=== PATIENT | male | born 1985 | race Caucasian/White ===

== ENCOUNTER 2018-04-22 19:00 | Emergency (ER) | payer OTHER ==
[2018-04-22 19:10] VITALS: BP 145/77
--- NOTE | 2018-04-22 19:15 | ED Physician Documentation ---
PD HPI OPHTHO - Stated complaint Stated Complaint: RT EYE VISION LOSS - Chief complaint Chief Complaint: Heent - History obtained from History obtained from: Patient - History of Present Illness Timing - onset: How many minutes ago (45), Today Timing - duration: Minutes (lasted just 1-2 minutes then resolved. He was on knees working, not grunting nor straining, and had onset of v-shaped darkened vision in just right eye from upper aspect. Lasted about 1-2 minutes then improved. No headache. No scotomata nor flashes.) Timing - details: Abrupt onset, Now resolved Location: Right Quality / character: No: Itching, Burning, Aching Associated symptoms: Loss of vision (in v-shape from top of visual field.). No: Redness, Swelling Contributing factors: No: Recent URI, FB, Wears contacts Similar symptoms before: Has not had sx before Recently seen: Not recently seen Review of Systems Constitutional: denies: Fever, Chills Nose: denies: Rhinorrhea / runny nose, Congestion Throat: denies: Sore throat Respiratory: denies: Cough Neurologic: denies: Focal weakness, Numbness, Near syncope, Confused, Altered mental status, Headache, Head injury PD PAST MEDICAL HISTORY - Past Medical History Cardiovascular: None Respiratory: None Neuro: Migraines Endocrine/Autoimmune: None GI: None HEENT: None - Past Surgical History Past Surgical History: No - Present Medications Home Medications: Ambulatory Orders Medication Instructions Recorded Confirmed No Known Home Medications 07/19/16 07/19/16 - Allergies Allergies/Adverse Reactions: Allergies Allergy/AdvReac Type Severity Reaction Status Date / Time No Known Drug Allergies Allergy Verified 04/22/18 19:10 - Social History Does the pt smoke?: No Smoking Status: Never smoker Does the pt drink ETOH?: No Does the pt have substance abuse?: No - Immunizations Immunizations are current?: Yes PD ED PE NORMAL - Vitals Vital signs reviewed: Yes - General General: Alert and oriented X 3, No acute distress, Well developed/nourished PD ED PE EXPANDED - Eyes Eyes: PERRL, EOMI, Both eyes, Normal eyelids, Anterior chambers clear, Other (bedside U/S did not show any obvious retinal flaps. ). No: Injected conj/sclera, Exudate, Corneal FB, Papilledema, Retinal hemorrhage Results - Vitals Vitals: Vital Signs - 24 hr 09/23/18 19:05 Temperature 36.7 C Heart Rate 63 Respiratory 16 Rate Blood Pressure 145/77 H O2 Saturation 95 Oxygen O2 Source Room air PD MEDICAL DECISION MAKING - ED course Complexity details: considered differential (history of migraines but he did not have headache nor scotomata with the vision change, so not clearly migraine. Consider retinal process. Eye appears normal now. I would like him to have more expert exam tomorrow. Rest in meanwhile. ), d/w patient - Sepsis Event Vital Signs: Vital Signs - 24 hr 04/22/18 19:05 Temperature 36.7 C Heart Rate 63 Respiratory 16 Rate Blood Pressure 145/77 H O2 Saturation 95 Oxygen O2 Source Room air Departure - Departure Disposition: 01 Home, Self Care Clinical Impression: Vision loss of left eye Condition: Stable Record reviewed to determine appropriate education?: Yes Follow-Up: [facility] [Provider Group] Carlos A Wyman MD [Provider Admit Priv/Credential] - Comments: Follow-up with an document specialist tomorrow for recheck to verify how the retina is looking. Rest off work tonight. Forms: Activity restrictions Discharge Date/Time: 04/22/18 19:57
== END 2018-04-22 19:57 | disposition home or self-care (01) ==
LOC: ED 19:00
DX: H54.61 Unqualified visual loss, right eye, normal vision left eye (principal)
CPT/HCPCS: 99282; 99283

== ENCOUNTER 2018-06-05 10:53 | Emergency (ER) | payer OTHER ==
[2018-06-05] MEDS ORDERED: HYDROcod/ACETAM 5/325 MG TABLET PO STA (12:20)
[2018-06-05] MEDS ORDERED: CLINDAMYCIN 150 MG CAPSULE PO STA (12:20)
[2018-06-05] MEDS ORDERED: DEXAMETHASONE 10 MG/ML VIAL PO STA (12:20)
--- NOTE | 2018-06-05 12:24 | ED Physician Documentation ---
History of Present Illness - Stated complaint Stated Complaint: THROAT/NECK PX - Chief complaint Chief Complaint: General - History obtained from History obtained from: Patient - History of Present Illness Timing: How many days ago (3) Pain level max: 9 Pain level now: 9 - Additonal information Additional information: Patient is a healthy 33-year-old male who presents to the emergency department with 3 days of a sore throat, neck pain, headache. Unsure if he has had fevers or not. Has pain with swallowing. Worse with swallowing, better with Motrin. No vomiting. No diarrhea. No rashes. Immunizations are up-to-date. Review of Systems Constitutional: denies: Fever, Chills Ears: denies: Ear pain Nose: denies: Rhinorrhea / runny nose, Congestion Cardiac: denies: Chest pain / pressure Respiratory: denies: Dyspnea, Cough GI: denies: Abdominal Pain, Vomiting, Diarrhea Skin: denies: Rash Musculoskeletal: denies: Neck pain, Back pain PD PAST MEDICAL HISTORY - Past Medical History Cardiovascular: None Respiratory: None Neuro: Migraines Endocrine/Autoimmune: None GI: None HEENT: None - Past Surgical History Past Surgical History: No - Present Medications Home Medications: Ambulatory Orders Medication Instructions Recorded Confirmed Clindamycin HCl [Clindamycin 300MG 300 mg PO Q6H #40 capsule 06/05/18 CAP] Cyclobenzaprine [Flexeril] 06/05/18 Hydrocodone/Acetaminophen 1 - 2 each PO Q6H PRN #10 tablet 06/05/18 [Hydrocodon-Acetaminophen 5-325] Sumatriptan [Imitrex] 06/05/18 predniSONE [Prednisone] 40 mg PO DAILY #10 tablet 06/05/18 - Allergies Allergies/Adverse Reactions: Allergies Allergy/AdvReac Type Severity Reaction Status Date / Time No Known Drug Allergies Allergy Verified 06/05/18 11:19 - Social History Does the pt smoke?: No Smoking Status: Never smoker Does the pt drink ETOH?: Yes ETOH Use: Liquor Does the pt have substance abuse?: No - Immunizations Immunizations are current?: Yes - POLST Patient has POLST: No PD ED PE NORMAL - Vitals Vital signs reviewed: Yes - General General: Alert and oriented X 3, No acute distress, Well developed/nourished - HEENT HEENT: PERRL, Moist mucous membranes, Other (Moderate posterior pharyngeal erythema without tonsillar exudates. Uvula is deviated just to the left of midline. There is swelling without fluctuance.) - Neck Neck: Supple, no meningeal sign, Other (Shotty anterior lymphadenopathy, right greater than left) - Cardiac Cardiac: RRR, Strong equal pulses - Respiratory Respiratory: No respiratory distress, Clear bilaterally - Abdomen Abdomen: Soft, Non tender, Non distended - Derm Derm: Warm and dry, No rash - Neuro Neuro: Alert and oriented X 3 - Psych Psych: Normal mood, Normal affect Results - Vitals Vitals: Vital Signs - 24 hr 06/05/18 11:00 Temperature 36.2 C L Heart Rate 71 Respiratory 12 Rate Blood Pressure 145/77 H O2 Saturation 100 Oxygen O2 Source Room air - Labs Labs: Laboratory Tests 06/05/18 11:14 Group A Strep Rapid Negative PD MEDICAL DECISION MAKING - ED course Complexity details: reviewed results, considered differential (No meningitis, no encephalitis, no sepsis), d/w patient ED course: 33-year-old male with what appears to be peritonsillar cellulitis versus early abscess. Given dexamethasone and clindamycin. Will based on clindamycin for home and close follow-up with his PCM. Patient is well-appearing, nontoxic. Afebrile. Tolerating p.o. without difficulty. Patient counseled regarding signs and symptoms for which I believe and urgent re-evaluation would be necessary. Patient with good understanding of and agreement to plan and is comfortable going home at this time This document was made in part using voice recognition software. While efforts are made to proofread this document, sound alike and grammatical errors may occur. Departure - Departure Disposition: 01 Home, Self Care Clinical Impression: Peritonsillar cellulitis Condition: Good Instructions: ED Peritonsillar Infec Abx No I andD Follow-Up: [facility] [Provider Group] - Within 3 Days Prescriptions: Clindamycin HCl [Clindamycin 300MG CAP] 300 mg PO Q6H #40 capsule Hydrocodone/Acetaminophen [Hydrocodon-Acetaminophen 5-325] 1 - 2 each PO Q6H PRN #10 tablet PRN Reason: pain predniSONE [Prednisone] 40 mg PO DAILY #10 tablet Comments: Take all antibiotics until gone. Return if you worsen. This may turn into an abscess and need to be drained. Follow-up with your doctor on or Monday for repeat evaluation. Do not drink alcohol or drive while on narcotic pain medicine. Note that many narcotic pain relievers also contain tylenol/acetaminophen. Please ensure that your total dose of acetaminophen from all sources does not exceed 3 grams (3000mg) per day. You may constipated on this medication, take a stool softener such as "Colace" twice a day while you are on it. Also recommend a pyfu-jug-wsmgaot laxative such as senna or MiraLAX any day that you do not have a bowel movement. If you received narcotic pain medication in the emergency department, do not drive or operate machinery for the next 24 hours.
[2018-06-05] MEDS ORDERED: CHERRY SYRUP 10 ML UDC PO ONE (12:29)
[2018-06-05 12:30] VITALS: BP 137/76
== END 2018-06-05 12:49 | disposition home or self-care (01) ==
LOC: ED 10:53
DX: J36 Peritonsillar abscess (principal)
CPT/HCPCS: 87070; 87430; 99283; A9270

== ENCOUNTER 2018-06-17 09:19 | Emergency (ER) | payer OTHER ==
[2018-06-17 09:27] VITALS: BP 144/89
[2018-06-17] MEDS ORDERED: predniSONE 20 MG TABLET PO STA (09:48)
--- NOTE | 2018-06-17 09:52 | ED Physician Documentation ---
PD HPI SKIN - Stated complaint Stated Complaint: ALLERGIC REACTION - Chief complaint Chief Complaint: Wound - History obtained from History obtained from: Patient - History of Present Illness Timing - onset: Other (Diagnosed with strep throat about 12 days ago and finished clindamycin on Monday. On that same date he developed a diffuse rash especially on the trunk and arms that is very itchy and painful. No mouth sores, fevers. The sore throat is resolved. He tried Benadryl without any relief.) Review of Systems Constitutional: denies: Fever, Chills Throat: denies: Oral lesions / sores Respiratory: denies: Dyspnea, Cough GI: denies: Abdominal Pain PD PAST MEDICAL HISTORY - Past Medical History Past Medical History: Yes Cardiovascular: None Respiratory: None Neuro: Migraines Endocrine/Autoimmune: None GI: None HEENT: None - Past Surgical History Past Surgical History: No - Present Medications Home Medications: Ambulatory Orders Medication Instructions Recorded Confirmed Cyclobenzaprine [Flexeril] 06/05/18 Sumatriptan [Imitrex] 06/05/18 Hydrocodone/Acetaminophen 1 each PO Q4H PRN #10 tablet 06/17/18 [Hydrocodone-Acetamin 5-325 mg] hydrOXYzine PAMOATE [Vistaril] 1 - 2 tab PO Q6H PRN #20 capsule 06/17/18 predniSONE [Deltasone] 60 mg PO DAILY 5 Days tablet 06/17/18 - Allergies Allergies/Adverse Reactions: Allergies Allergy/AdvReac Type Severity Reaction Status Date / Time No Known Drug Allergies Allergy Verified 06/17/18 09:27 - Social History Does the pt smoke?: No Smoking Status: Never smoker Does the pt drink ETOH?: Yes Does the pt have substance abuse?: No - Immunizations Immunizations are current?: Yes - POLST Patient has POLST: No PD ED PE NORMAL - Vitals Vital signs reviewed: Yes - General General: Alert and oriented X 3, No acute distress - HEENT HEENT: Pharynx benign - Derm Derm: Other (On the back especially but less so the arms there is a macular rash and he appears uncomfortable with it. There is no skin peeling and Nikolsky sign is negative.) - Neuro Neuro: Alert and oriented X 3, Normal speech Results - Vitals Vitals: Vital Signs - 24 hr 06/17/18 09:25 Temperature 36.7 C Heart Rate 73 Respiratory 18 Rate Blood Pressure 144/89 H O2 Saturation 100 Oxygen O2 Source Room air Departure - Departure Disposition: 01 Home, Self Care Clinical Impression: Drug eruption Condition: Good Record reviewed to determine appropriate education?: Yes Instructions: ED Drug React Allergic Prescriptions: Hydrocodone/Acetaminophen [Hydrocodone-Acetamin 5-325 mg] 1 each PO Q4H PRN #10 tablet PRN Reason: Pain hydrOXYzine PAMOATE [Vistaril] 1 - 2 tab PO Q6H PRN #20 capsule PRN Reason: Itching predniSONE [Deltasone] 60 mg PO DAILY 5 Days tablet Comments: Call your doctor to arrange a follow-up appointment, make the next available appointment. In the interim, return anytime if worse or if new symptoms develop. Your blood pressure was elevated today on check into the emergency department. This does not mean that you have hypertension, it is a common phenomenon to come to the emergency department and have elevated blood pressure. I recommend that you see your primary care physician within the week to have it rechecked when you are feeling better. Forms: Activity restrictions
== END 2018-06-17 10:05 | disposition home or self-care (01) ==
LOC: ED 09:19
DX: L27.0 Generalized skin eruption due to drugs and medicaments taken internally (principal); T36.8X5A Adverse effect of other systemic antibiotics, initial encounter; R03.0 Elevated blood-pressure reading, without diagnosis of hypertension
CPT/HCPCS: 99283; J7512

== ENCOUNTER 2018-07-09 12:29 | Outpatient (CLI) | payer OTHER ==
[2018-07-09] MEDS ORDERED: IOTHALAMATE MEGLUMINE 50 ML VIAL ONE (12:31)
[2018-07-09] MEDS ORDERED: GADOPENTETATE DIMEGLUMINE 5 ML VIAL IVP ONE ×2 (12:32→14:14)
[2018-07-09] MEDS ORDERED: BUFFERED LIDOCAINE 10 ML SYRINGE IU ONE (14:14)
[2018-07-09] MEDS ORDERED: IOTHALAMATE MEGLUMINE 50 ML VIAL IVP ONE (14:14)
--- NOTE | 2018-07-09 22:07 | MRI Report ---
Reason: LT UPPER ARM BICEPS TENDINITIS Procedure Date: 07/09/2018 Accession Number: [id number] / [id number] Procedure: MRI - Arthrogram Shoulder LT CPT Code: FULL RESULT: EXAM: LEFT SHOULDER MRI ARTHROGRAM WITH CONTRAST EXAM DATE: 07/09/2018 01:14 PM. CLINICAL HISTORY: Left upper arm biceps tendinitis. COMPARISON: None. TECHNIQUE: Multiplanar, multisequence T1-weighted and fluid-sensitive sequences of the shoulder after an arthrographic injection of dilute gadolinium, dictated under a separate exam. Other: None. FINDINGS: Acromioclavicular Region: The acromion is type I. The acromioclavicular joint is unremarkable. The coracoacromial and coracoclavicular ligaments are intact. There is no contrast or fluid in the subacromial/subdeltoid bursa. Glenohumeral Region: No subluxation. No loose bodies. The articular cartilage is unremarkable. The glenohumeral ligaments and joint capsule are unremarkable. Bone Marrow: No fracture, marrow edema or bone lesions. Labrum: The labrum is unremarkable. Biceps Tendon: The long head of the biceps tendon and biceps bruno are intact. Musculature/Rotator Cuff: The subscapularis, supraspinatus, infraspinatus, and teres minor tendons are intact. No edema or fatty atrophy. Other: The subcutaneous tissues are unremarkable. IMPRESSION: No MRI abnormalities in the shoulder. [facility] MUSCULOSKELETAL RADIOLOGY SECTION
--- NOTE | 2018-07-11 09:05 | XRAY Report ---
Reason: LT UPPER ARM BICEPS TENDINITIS Procedure Date: 07/09/2018 Accession Number: [id number] / [id number] Procedure: FL - Arthrogram Needle Placement CPT Code: FULL RESULT: EXAM: RIGHT/LEFT SHOULDER ARTHROGRAPHIC INJECTION WITH FLUOROSCOPIC GUIDANCE EXAM DATE: 07/09/2018 01:15 PM. CLINICAL HISTORY: LT UPPER ARM BICEPS TENDINITIS. COMPARISON: ARTHROGRAM SHOULDER LT 07/09/2018 1:14 PM. TECHNIQUE: The risks, benefits, and alternatives of the procedure were discussed with the patient. All questions were answered. Written and verbal consent were obtained. The glenohumeral joint was marked under fluoroscopy and prepped and draped in a sterile manner. Local anesthesia was performed with 1% lidocaine. A 22-gauge needle was then inserted into the glenohumeral joint. 10 mL of a solution containing 25% 1% lidocaine, 25% iodinated contrast, and a 1:200 dilution of gadolinium contrast in sterile saline was then injected. The needle was removed without immediate complication. Other: None. Fluoroscopy Time: 0.1 minutes. Number of Images: 8. FINDINGS: Bones and joints: No fracture or subluxation. Injection: Fluoroscopic images demonstrate needle placement and contrast in the glenohumeral joint. No contrast extravasation outside of the glenohumeral joint. IMPRESSION: Successful fluoroscopically guided arthrographic injection of the shoulder. [facility]
== END 2018-07-09 12:30 | disposition home or self-care (01) ==
LOC: DI 12:29
PROVIDERS: ATTEND Orthopaedic Surgery
DX: M67.922 Unspecified disorder of synovium and tendon, left upper arm (principal); M75.22 Bicipital tendinitis, left shoulder
CPT/HCPCS: 23350; 73222; 77002; Q9961